=== PATIENT | female | born 1980 | race African-American/Black ===

== ENCOUNTER 2019-05-08 09:40 | Observation (INO) | payer MEDICAID, OTHER ==
[2019-05-08] MEDS ORDERED: PREN27TA7 PO (10:47)
== END 2019-05-08 11:20 | disposition home or self-care (01) | DRG 566 ==
LOC: LDRP 09:40
PROVIDERS: ADMIT Obstetrics & Gynecology; ATTEND Obstetrics & Gynecology
DX: O62.9 Abnormality of forces of labor, unspecified (principal); O09.523 Supervision of elderly multigravida, third trimester; Z3A.38 38 weeks gestation of pregnancy
CPT/HCPCS: 59025; 81002; G0378

== ENCOUNTER 2019-05-09 16:11 | Observation (INO) | payer MEDICAID ==
[~2019-05-09 16:11] MED LIST: PREN27TA7 PO
== END 2019-05-09 21:15 | disposition home or self-care (01) | DRG 566 ==
LOC: LDRP 16:11
PROVIDERS: ADMIT Specialist; ATTEND Specialist
DX: O62.9 Abnormality of forces of labor, unspecified (principal); Z3A.39 39 weeks gestation of pregnancy
CPT/HCPCS: 59025; 76818; 81002; G0378; 96365

== ENCOUNTER 2019-05-19 07:00 | Inpatient (IN) | payer MEDICAID ==
[~2019-05-19] VITALS: Ht 160 cm; Wt 93.0 kg
[2019-05-19] MEDS ORDERED: LACT. RINGERS/OXYTOCIN 20UNITS 1,000 ML IV SCH ×2 (07:32→08:38)
[2019-05-19] MEDS ORDERED: DERMOPLAST 60ML BOTTLE TOP PRN (07:45)
[2019-05-19] MEDS ORDERED: WITCH HAZEL-GLYCERIN PAD TOP PRN (07:45)
[2019-05-19] MEDS ORDERED: PHISODERM TOP SOLN 240ML BTL TOP PRN (07:45)
[2019-05-19] MEDS ORDERED: LIDOCAINE 2%HCL (LOCAL ANESTH.) INJ 20ML MDV ID ONE (07:45)
[2019-05-19] MEDS: LACTATED RINGER'S 1,000 ML IV SCH ×3 (07:53→14:26)
[2019-05-19 08:08] LABS: Basophils # (auto) 0 uL; Eosinophils # (auto) 0 uL; Hematocrit 31.4 % (36.0-46.0); Neutrophils # (auto) 4.2 uL
[2019-05-19 08:10] LABS: Basophils % (auto) 0.8 % (0.0-2.0); Eosinophils % (auto) 0.6 % (0.0-7.0); Hemoglobin 10.6 g/dL (12.2-16.2); Lymphocytes # (auto) 1.3 uL; Lymphocytes % (auto) 21.1 % (10.0-50.0); Mean Corpuscular Hemoglobin 24.8 pg (28.0-32.0); Mean Corpuscular Hgb Conc. 33.7 g/dL (32.0-36.0); Mean Corpuscular Volume 73.7 fL (80.0-100.0); Monocytes # (auto) 0.4 uL; Monocytes % (auto) 7.2 % (0.0-12.0); Neutrophils % (auto) 70.3 % (37.0-80.0); Nucleated Red Blood Cells % 0.1 %; Platelet Count (auto) 273 10^3/uL (140-450); Red Blood Cells 4.26 10^6/uL (4.0-5.20); Red Cell Distribution Width 15.6 % (11.8-14.3)
[2019-05-19 08:14] LABS: Urine Bacteria FEW /hpf (None Seen); Urine Blood Negative /uL (Negative); Urine Mucus FEW (None Seen); Urine Specific Gravity 1.021 (1.001-1.035); Urine WBC 3 /hpf (0 - 5)
[2019-05-19 08:22] LABS: INR 0.94 (0.9-1.15); Partial Thromboplastin Time 27.8 sec (23.64-32.05)
[2019-05-19 08:25] LABS: Albumin 2.5 g/dL (3.4-5.0); Calcium 8.3 mg/dL (8.5-10.1); Potassium 3.6 mmol/L (3.5-5.1)
[2019-05-19 08:28] LABS: Bilirubin, Total 0.4 mg/dL (0.2-1.0); Total Protein 6.5 g/dL (6.4-8.2)
[2019-05-19] MEDS ORDERED: NALBUPHINE HCL 10 MG/1ml INJECTION IV PRN (08:45)
[2019-05-19] MEDS ORDERED: LACTATED RINGER'S 500 ML IV ONE (09:31)
[2019-05-19] MEDS ORDERED: NALOXONE HCL 0.4 MG/ML VIAL IV ONE (09:45)
[2019-05-19] MEDS ORDERED: fentaNYL W ROPIVACAINE 150 ML EPI SCH (09:45)
[2019-05-19] MEDS ORDERED: ePHEDrine SULFATE 50 MG/ML AMP IV ONE (09:45)
[2019-05-19] MEDS ORDERED: LACT. RINGERS/OXYTOCIN 20UNITS 500 ML IV ONE (17:30)
--- NOTE | 2019-05-19 18:30 | NUR ---
Teaching: Reviewed information in [employer] booklet with patient. Discussed benefits of and risks associated with not . Discussed different positions, proper latch, feeding cues, and baby-led . Provided information of medication side effects related to . All questions and concerns addressed at this time. Patient verbalized understanding of information.
--- NOTE | 2019-05-19 19:57 | NUR ---
This RN called to bedside by Carmel Nichols RN. Fundus is 2 above U and deviated right. Large amount of bleeding noted in bed, golf ball sized clot noted on fundal massage and urine trickling out with fundal massage. This RN performs straight cath and gets 850 ml clear urine out. Fundal massage repeated with scant bleeding, firm fundus 2 below u noted. Pericare provided. Blood loss volume measured using hemorrhage cart scale by this RN (471ml). Nader DAWN notified of blood loss, urine output and RN interventions via phone, orders received to finish 500 ml Pitocin bolus and then continue to monitor pt at this time. Addendum: 05/19/19 at 8 by Divya Herron RN This took place at 1835 with note entered now by this RN
[2019-05-19] MEDS: IBUPROFEN 600 MG TAB PO PRN (20:21)
--- NOTE | 2019-05-19 20:42 | NUR ---
Ambulation: Blood pressure and fundus assessed, B/P 138/77 HR 93 fundus firm, to the right with small amount of bleeding no clots noted. Patient OOB with standby assistance by RN. Patient ambulated to bathroom with steady gait. Patient able to void without difficulty 900ml, no clots or bleeding noted at this time. Pericare teaching provided with returned demonstration by patient. Clean gown provided and bed linen changed. Patient ambulated back to bed with steady gait and no distress noted.
--- NOTE | 2019-05-19 22:20 | NUR ---
urine output 800ml
[2019-05-19 23:00] VITALS: BP 135/81
[2019-05-20] MEDS: IBUPROFEN 600 MG TAB PO PRN ×5 (00:32→20:30)
--- NOTE | 2019-05-20 02:20 | NUR ---
SBAR Report given to Tashia Barron RN, endorsed care.
[2019-05-20 03:30] VITALS: BP 117/68
[2019-05-20 05:06] LABS: RPR Non Reactive (Non Reactive)
[2019-05-20 06:32] LABS: Hemoglobin 9.7 g/dL (12.2-16.2)
[2019-05-20 06:33] LABS: Hematocrit 28.3 % (36.0-46.0)
[2019-05-20 07:15] VITALS: BP 112/69
[2019-05-20] MEDS: FERROUS SULFATE 325 MG TAB PO SCH ×2 (08:38→17:52)
[2019-05-20] MEDS: ACETAMINOPHEN 325 MG TAB PO PRN ×3 (08:38→22:51)
[2019-05-20 10:50] VITALS: BP 138/77
[2019-05-20 15:30] VITALS: BP 119/70
[2019-05-20] MEDS ORDERED: TETANUS-DIPTH-ACEL PERTUSSIS 0.5ML SYRG IM ONE (17:00)
[2019-05-20 19:00] VITALS: BP 116/67
[2019-05-20 22:51] VITALS: BP 136/86
[2019-05-21 02:57] VITALS: BP 109/68
--- NOTE | 2019-05-21 06:24 | NUR ---
Report received from YA Leiva on stable pt. Assumed care. Addendum: 05/21/19 at 0727 by Veena Perdue RN Amended: Links added.
[2019-05-21 06:54] VITALS: BP 100/53
[2019-05-21] MEDS: FERROUS SULFATE 325 MG TAB PO SCH (08:21)
--- NOTE | 2019-05-21 09:49 | NUR ---
Discharge: Discharge instructions given as ordered. Pt encouraged to follow up with [facility] as instructed. All questions and concerns addressed. Patient verbalized understanding. Medication reconciliation completed and copy given to patient. All required/requested vaccines given and copies of vaccinations given to patient. Patient encouraged to prepare to depart unit.
--- NOTE | 2019-05-21 09:58 | NUR ---
IV removal Fundus and lochia assessed prior to removal of IV. Fundus 1 above U firm with scant bleeding noted. 20G IV DC'd from left wrist with sterile technique, catheter fully intact. Pressure dressing applied to site. Patient tolerated procedure well. Addendum: 05/21/19 at 1002 by Veena Perdue RN Amended: Links added.
--- NOTE | 2019-05-21 10:23 | NUR ---
Report given to Ephraim Mai RN on stable pt. Relinquished care.
--- NOTE | 2019-05-21 10:23 | NUR ---
report received from anastacia quintana rn
[2019-05-21 11:00] VITALS: BP 131/81
[2019-05-21] MEDS: IBUPROFEN 600 MG TAB PO PRN (11:26)
[2019-05-21 14:48] VITALS: BP 132/82
--- NOTE | 2019-05-21 15:00 | NUR ---
Discharge: Patient taken to vehicle via wheelchair with all personal belongings, accompanied by staff and family member. No distress noted at time of departure, no adverse changes in status since initial assessment.
== END 2019-05-21 15:00 | disposition home or self-care (01) | DRG 560 ==
LOC: OBSVTOIN 07:00 → LDRP 07:00
PROVIDERS: ADMIT Specialist; ATTEND Specialist
PROC: 10E0XZZ Delivery of Products of Conception, External Approach (ICD-10-PCS; principal; 2019-05-19)
PROC: 3E0R3BZ Introduction of Anesthetic Agent into Spinal Canal, Percutaneous Approach (ICD-10-PCS; 2019-05-19)
PROC: 00HU33Z Insertion of Infusion Device into Spinal Canal, Percutaneous Approach (ICD-10-PCS; 2019-05-19)
PROC: 10907ZC Drainage of Amniotic Fluid, Therapeutic from Products of Conception, Via Natural or Artificial Opening (ICD-10-PCS; 2019-05-19)
PROC: 3E033VJ Introduction of Other Hormone into Peripheral Vein, Percutaneous Approach (ICD-10-PCS; 2019-05-19)
DX: O48.0 Post-term pregnancy (principal); O72.2 Delayed and secondary postpartum hemorrhage; Z37.0 Single live birth; Z3A.40 40 weeks gestation of pregnancy; Z88.0 Allergy status to penicillin
CPT/HCPCS: 36415; 59025; 59409; 80053; 81001; 81002; 84112; 85014; 85018; 85025; 85610; 85730; 86592; 86850; 86900; 86901; 90715; 94760; 96361; 96366; 96372; G0378; J2590; J3010

== ENCOUNTER 2020-10-24 13:20 | Emergency (ER) | payer MEDICAID ==
[~2020-10-24] VITALS: Ht 157.5 cm; Wt 85.7 kg
[2020-10-24] MEDS ORDERED: ASPirin 81 mg TAB PO ONE (14:00)
[2020-10-24 14:32] LABS: Basophils # (auto) 0 10 ^3/uL (0-0.2); Basophils % (auto) 0.7 % (0.0-2.0); Eosinophils # (auto) 0.1 10 ^3/uL (0-0.8); Eosinophils % (auto) 1.2 % (0.0-7.0); Hematocrit 39.6 % (36.0-46.0); Hemoglobin 13.7 g/dL (12.2-16.2); Lymphocytes # (auto) 1.4 10 ^3/uL (0.4-5.4); Lymphocytes % (auto) 30.2 % (10.0-50.0); Mean Corpuscular Hemoglobin 27.4 pg (28.0-32.0); Mean Corpuscular Hgb Conc. 34.5 g/dL (32.0-36.0); Mean Corpuscular Volume 79.4 fL (80.0-100.0); Monocytes # (auto) 0.4 10 ^3/uL (0-1.3); Neutrophils # (auto) 2.8 10 ^3/uL (1.6-8.6); Neutrophils % (auto) 59.9 % (37.0-80.0); Nucleated Red Blood Cells % 0.5 %; Platelet Count (auto) 301 10^3/uL (140-450); Red Blood Cells 4.99 10^6/uL (4.0-5.20); Red Cell Distribution Width 13.9 % (11.8-14.3); White Blood Cell 4.7 10^3/uL (4.4-10.8)
[2020-10-24 15:38] LABS: Alanine Aminotransferase 17 U/L (13-56); Alkaline Phosphatase 72 U/L (45-117); Anion Gap 6 (5-15); Aspartate Aminotransferase 7 U/L (15-37); BUN/Creatinine Ratio 13.2; Bilirubin, Total 0.6 mg/dL (0.2-1.0); Blood Urea Nitrogen 9 mg/dL (7-18); Calcium 8.9 mg/dL (8.5-10.1); Carbon Dioxide 25 mmol/L (21-32); Chloride 109 mmol/L (98-107); GFR African American 123 mL/min; GFR Non-African American 102 mL/min; Glucose 76 mg/dL (74-106); Potassium 3.8 mmol/L (3.5-5.1); Sodium 140 mmol/L (136-145)
[2020-10-24 15:39] LABS: Albumin 3.6 g/dL (3.4-5.0); Total Protein 7.3 g/dL (6.4-8.2)
[2020-10-24 16:14] VITALS: BP 113/70
[2020-10-24 16:39] LABS: Urine Bacteria MOD /hpf (None Seen); Urine Blood Negative /uL (Negative); Urine Specific Gravity 1.024 (1.001-1.035); Urine WBC 5 /hpf (0 - 5)
== END 2020-10-24 17:47 | disposition home or self-care (01) ==
LOC: ER 13:20
DX: R07.89 Other chest pain (principal); N39.0 Urinary tract infection, site not specified; Z88.0 Allergy status to penicillin
CPT/HCPCS: 36415; 71045; 80053; 81001; 84443; 84484; 85025; 93005